=== PATIENT | female | born 2000 | race Caucasian/White ===

== ENCOUNTER → 2024-11-10 09:06 | Outpatient (REF) | payer BC, SELFPAY | LOC: PNTC 09:06 | PROVIDERS: ATTENDING PHYSICIAN Obstetrics & Gynecology | DX: Z36.0 Encounter for antenatal screening for chromosomal anomalies (principal); Z36.82 Encounter for antenatal screening for nuchal translucency | CPT/HCPCS: 36415; 76801; 76813 ==

== ENCOUNTER → 2025-01-05 14:59 | Outpatient (REF) | payer BC, SELFPAY | LOC: PNTC 14:59 | PROVIDERS: ATTENDING PHYSICIAN Obstetrics & Gynecology | DX: Z34.82 Encounter for supervision of other normal pregnancy, second trimester (principal) | CPT/HCPCS: 76805; 76817 ==

== ENCOUNTER → 2025-03-15 12:10 | Outpatient (REF) | payer BC, SELFPAY | LOC: PNTC 12:10 | PROVIDERS: ATTENDING PHYSICIAN Obstetrics & Gynecology | DX: O36.8190 Decreased fetal movements, unspecified trimester, not applicable or unspecified (principal) | CPT/HCPCS: 59025; 76815 ==

== ENCOUNTER 2025-05-01 08:28 | Observation (INO) | payer BC, SELFPAY ==
[2025-05-01 08:37] VITALS: BP 140/72; BMI 31.5
== END 2025-05-01 09:57 | disposition home or self-care (01) ==
LOC: LDRP 08:28
PROVIDERS: ADMITTING PHYSICIAN Obstetrics & Gynecology; FAMILY PHYSICIAN Nurse Practitioner Family
DX: O46.8X3 Other antepartum hemorrhage, third trimester (principal); Z3A.36 36 weeks gestation of pregnancy
CPT/HCPCS: 36415; 86850; 86900; 86901; G0378

== ENCOUNTER 2025-05-07 18:03 | Inpatient (IN) | payer BC, SELFPAY ==
[2025-05-07 18:13] VITALS: BP 142/74; BMI 31.9
[2025-05-07] MEDS: CYTOTEC 25 MICROGRAM VAG (20:29)
[2025-05-07] MEDS: TYLENOL 1000 MG PO (20:32)
[2025-05-07 20:38] LABS: Hematocrit 31.8 % (37.0-47.0); Hemoglobin 10.8 g/dL (12.0-16.0); Mean Corp Hgb Conc. 34.0 g/dL (33.0-37.0); Mean Corpuscular Volume 80.5 fL (81.0-99.0); Nucleated Red Blood Cells % 0 %; Platelet Count 258 10^3/uL (130-400); Red Cell Dist. Width 13.1 % (11.5-14.5)
[2025-05-07 20:44] LABS: ALT (SGPT) < 10 U/L (0-35); AST (SGOT) 19 U/L (14-36); Albumin 3.3 g/dl (3.5-5.0); Alkaline Phosphatase 99 U/L (38-126); Blood Urea Nitrogen 7 mg/dl (7-17); Calcium 8.7 mg/dl (8.4-10.2); Carbon Dioxide 20 mmol/L (22-30); Chloride 108 mmol/L (98-107); Estimated Creatinine Clearance > 125 ml/min; Glucose 101 mg/dl (70-99); Potassium 3.6 mmol/L (3.5-5.1); Sodium 134 mmol/L (135-145); Total Protein 5.8 g/dl (6.3-8.2); eGFR > 60.00
[2025-05-08] MEDS: CYTOTEC 50 MICROGRAM PO ×2 (00:36→05:05)
[2025-05-08] MEDS: CYTOTEC PO (08:46)
[2025-05-08] MEDS: PITOCIN 30 UNITS/NSS 500 ML IV (08:46)
[2025-05-08] MEDS: LR 1000 IV ×3 (08:46→21:32)
[2025-05-08] MEDS: TUMS CHEWABLE TABLET 400 MG PO ×2 (11:28→23:54)
[2025-05-08] MEDS: SUBLIMAZE 100 MCG EPIDURAL (12:47)
[2025-05-08] MEDS: FENTANYL/BUPIVACAINE 100 EPIDURAL ×2 (12:48→21:28)
[2025-05-09] MEDS: FENTANYL/BUPIVACAINE 100 EPIDURAL (04:25)
[2025-05-09] MEDS: LR 1000 IV (04:28)
[2025-05-09] MEDS: PITOCIN 30 UNITS/NSS 500 ML IV (08:57)
[2025-05-09] MEDS: COLACE 100 MG PO (19:57)
[2025-05-09] MEDS: MOTRIN 600 MG PO (23:00)
[2025-05-10 05:00] LABS: Hematocrit 27.2 % (37.0-47.0); Hemoglobin 9.4 g/dL (12.0-16.0)
[2025-05-10] MEDS: PRENATAL PLUS 1 TABLET PO (08:53)
[2025-05-10] MEDS: COLACE 100 MG PO ×2 (08:53→19:57)
[2025-05-10] MEDS: MOTRIN 600 MG PO ×2 (08:55→17:20)
[2025-05-11] MEDS: PRENATAL PLUS PO (08:01)
[2025-05-11] MEDS: COLACE 100 MG PO (08:01)
[2025-05-11] MEDS: FEOSOL 325 MG PO (08:01)
[2025-05-11] MEDS: PRENATAL PLUS 1 TABLET PO (08:01)
[2025-05-11] MEDS: MOTRIN 600 MG PO (08:02)
[2025-05-11 12:56] LABS: Syphilis/T. pallidum Ab Reflex Negative (Negative)
== END 2025-05-11 11:39 | disposition home or self-care (01) | DRG 807 ==
LOC: LDRP 18:03
PROVIDERS: Obstetrics & Gynecology; ADMITTING PHYSICIAN Obstetrics & Gynecology; CONSULT PHYSICIAN Anesthesiology; CONSULT PHYSICIAN Nurse Anesthetist, Certified Registered; CONSULT PHYSICIAN Registered Nurse; CONSULT PHYSICIAN Specialist; CONSULT PHYSICIAN Student in an Organized Health Care Education/Training Program
PROC: 3E0P7VZ Introduction of Hormone into Female Reproductive, Via Natural or Artificial Opening (ICD-10-PCS; 2025-05-07)
PROC: 10E0XZZ Delivery of Products of Conception, External Approach (ICD-10-PCS; 2025-05-09)
PROC: 10907ZC Drainage of Amniotic Fluid, Therapeutic from Products of Conception, Via Natural or Artificial Opening (ICD-10-PCS; 2025-05-09)
PROC: 3E033VJ Introduction of Other Hormone into Peripheral Vein, Percutaneous Approach (ICD-10-PCS; 2025-05-11)
DX: O41.03X0 Oligohydramnios, third trimester, not applicable or unspecified (principal); Z37.0 Single live birth; Z3A.37 37 weeks gestation of pregnancy; O69.81X0 Labor and delivery complicated by cord around neck, without compression, not applicable or unspecified
CPT/HCPCS: 80053; 85014; 85018; 85025; 86780; 86850; 86900; 86901; 88307